=== PATIENT | female | born 1935 | race Caucasian/White ===

== ENCOUNTER 2017-03-23 16:16 | Inpatient (IN) | payer MEDICARE ==
[~2017-03-23] VITALS: Ht 162.6 cm; Wt 70.8 kg
[~2017-03-23 16:16] MED LIST: AZOP1SUS RIGHT EYE; LEVO100T5 PO
[2017-03-23 16:36] VITALS: BP 164/67; PULSE 52; RESP 18; TEMP 97.7; O2SAT 98
--- NOTE | 2017-03-23 16:43 | PD ---
HPI Chief Complaint: knee injury Time Seen by Provider: 16:37 Travel History International Travel<30 days: No Contact w/Intl Traveler<30days: No Traveled to known affect area: No History of Present Illness HPI 81-year-old female came to the emergency room brought by EMS after slipping and falling and injuring her left knee. Patient says she was on the floor for 45 minutes before EMS showed up. She is in excruciating pain in spite of getting 10 mg of IV morphine en route. She says she's been unable to move her left leg and the pain is from her mid thigh going all the way down. The knee looks quite swollen. No history of head injury. Her hip and her right leg is within normal limits. [facility] Past Medical History Narrative Medical List of her past medical, surgical, social and family history was reviewed from the nursing note. Social History Tobacco Use: No Allergies-Medications (Allergen,Severity, Reaction): Coded Allergies: No Known Allergies (Unverified , 03/23/17) Comments No known drug allergies. Reported Meds & Prescriptions Reported Meds & Active Scripts Active Levothyroxine (Levothyroxine Sodium) 100 Mcg Tab 100 Mcg PO DAILY Reported Azopt Opth Drops (Brinzolamide) 1% Susp 1 Drop RIGHT EYE BID Narrative Medication List of her home medications reviewed from the nursing note. Review of Systems Except as stated in HPI: all other systems reviewed are Neg Physical Exam Narrative GENERAL: Awake, alert, anxious, moderate distress significant distress SKIN: Focused skin assessment warm/dry. HEAD: Atraumatic. Normocephalic. EYES: Pupils equal and round. No scleral icterus. No injection or drainage. ENT: No nasal bleeding or discharge. Mucous membranes pink and moist. NECK: Trachea midline. No JVD. CARDIOVASCULAR: Regular rate and rhythm. No murmur appreciated. RESPIRATORY: No accessory muscle use. Clear to auscultation. Breath sounds equal bilaterally. GASTROINTESTINAL: Abdomen soft, non-tender, nondistended. Hepatic and splenic margins not palpable. MUSCULOSKELETAL: Left knee swollen and tender. Significantly diminished range of motion at the left knee joint due to the pain No clubbing. No cyanosis. No edema. Distal neurovascular are intact NEUROLOGICAL: Awake and alert. No obvious cranial nerve deficits. Motor grossly within normal limits. Normal speech. PSYCHIATRIC: Appropriate mood and affect; insight and judgment normal. Data Data Last Documented VS Vital Signs Date Time Temp Pulse Resp B/P Pulse Ox O2 Delivery O2 Flow Rate FiO2 03/23/17 18:01 71 20 148/68 98 Room Air 03/23/17 16:36 97.7 Orders Electrocardiogram (03/23/17 16:37) Basic Metabolic Panel (Bmp) (03/23/17 16:37) Complete Blood Count With Diff (03/23/17 16:37) Prothrombin Time / Inr (Pt) (03/23/17 16:37) Chest, Single Ap (03/23/17 16:37) Ecg Monitoring (03/23/17 16:37) Bilateral Bp Monitoring (03/23/17 16:37) Iv Access Insert/Monitor (03/23/17 16:37) Oximetry (03/23/17 16:37) Oxygen Administration (03/23/17 16:37) Sodium Chloride 0.9% Flush (Ns Flush) (03/23/17 16:45) Hydromorphone Pf Inj (Dilaudid Pf Inj) (03/23/17 16:45) Femur (Ap & Lat/2vws) (03/23/17 ) Tibia/Fibula (Ap/Lat) (03/23/17 ) Knee, Ltd (1 Or 2vws) (03/23/17 ) Hydromorphone Pf Inj (Dilaudid Pf Inj) (03/23/17 18:00) Admit Order (Ed Use Only) (03/23/17 18:26) Labs Laboratory Tests Test 03/23/17 16:53 White Blood Count 4.8 TH/MM3 Red Blood Count 4.06 MIL/MM3 Hemoglobin 12.0 GM/DL Hematocrit 36.4 % Mean Corpuscular Volume 89.7 FL Mean Corpuscular Hemoglobin 29.5 PG Mean Corpuscular Hemoglobin 32.9 % Concent Red Cell Distribution Width 13.8 % Platelet Count 155 TH/MM3 Mean Platelet Volume 7.5 FL Neutrophils (%) (Auto) 66.6 % Lymphocytes (%) (Auto) 21.9 % Monocytes (%) (Auto) 7.7 % Eosinophils (%) (Auto) 2.9 % Basophils (%) (Auto) 0.9 % Neutrophils # (Auto) 3.2 TH/MM3 Lymphocytes # (Auto) 1.1 TH/MM3 Monocytes # (Auto) 0.4 TH/MM3 Eosinophils # (Auto) 0.1 TH/MM3 Basophils # (Auto) 0.0 TH/MM3 CBC Comment DIFF FINAL Differential Comment Prothrombin Time 10.4 SEC Prothromb Time International 0.9 RATIO Ratio Sodium Level 141 MEQ/L Potassium Level 3.6 MEQ/L Chloride Level 107 MEQ/L Carbon Dioxide Level 29.5 MEQ/L Anion Gap 5 MEQ/L Blood Urea Nitrogen 22 MG/DL Creatinine 0.62 MG/DL Estimat Glomerular Filtration 93 ML/MIN Rate Random Glucose 102 MG/DL Calcium Level 8.6 MG/DL [facility] Medical Decision Making Medical Screen Exam Complete: Yes Emergency Medical Condition: Yes Medical Record Reviewed: Yes Differential Diagnosis Femur fracture, knee fracture, tib-fib fracture Narrative Course 4:45 PM patient was given pain medication and x-rays are ordered. Based on my clinical exam my suspicion is high for distal femur fracture. Awaiting for the x-ray to be done and resulted. Preop labs have been ordered in anticipation. Case will be signed over to the oncoming ER physician. Procedures EKG Prior to Arrival: No Scripts Ergocalciferol 50,000 Unit Cap50,000 Units PO Q7D #56 CAP Prov:Mickey Castano Jr. 03/24/17 Rivaroxaban (Xarelto)10 Mg Tab10 Mg PO DAILY #21 TAB Ref 0 Prov:Mickey Castano Jr. 03/24/17 Hydrocodone-Acetaminophen 7.5-325 mg Tab1 Tab PO Q4H PRN (PAIN) #60 TAB Ref 0 Prov:Mickey Castano Jr. 03/24/17 Walker with Front Wheels 1 Mis Mis #1 EA .ROUTE DIRECTED Ref 0 Prov:Mickey Castano Jr. 03/24/17 Vicente Montejo MD Mar 23, 2017 16:43
[2017-03-23] MEDS ORDERED: HYDROmorphone HCL PF 1 MG/ML VIAL IV PUSH ONE ×3 (16:45→19:15)
[2017-03-23] MEDS ORDERED: SODIUM CHLORIDE 0.9% FLUSH 10 ML FLUSH IVF PRN (16:45)
[2017-03-23 17:06] LABS: AUTOMATED NEUTROPHIL # 3.2 TH/MM3 (1.8-7.7); BASOPHIL % 0.9 % (0.0-2.0); EOSINOPHIL # 0.1 TH/MM3 (0-0.4); EOSINOPHIL % 2.9 % (0.0-4.0); HEMATOCRIT 36.4 % (35.0-46.0); HEMO FLAGS DIFF FINAL; LYMPH % 21.9 % (9.0-44.0); LYMPHOCYTE # 1.1 TH/MM3 (1.0-4.8); MEAN CELL VOLUME 89.7 FL (80.0-100.0); MEAN CORPUSCULAR HEMOGLOBIN 29.5 PG (27.0-34.0); MEAN CORPUSCULAR HGB CONC 32.9 % (32.0-36.0); MONO % 7.7 % (0.0-8.0); NEUT % 66.6 % (16.0-70.0); PLATELET COUNT 155 TH/MM3 (150-450); RED BLOOD COUNT 4.06 MIL/MM3 (4.00-5.30); RED CELL DISTRIBUTION WIDTH 13.8 % (11.6-17.2); WHITE BLOOD COUNT 4.8 TH/MM3 (4.0-11.0)
[2017-03-23 17:15] LABS: INTERNATIONAL NORMALIZED RATIO 0.9 RATIO; PROTHROMBIN TIME - PATIENT 10.4 SEC (9.8-11.6)
[2017-03-23 17:27] LABS: BICARBONATE 29.5 MEQ/L (21.0-32.0); POTASSIUM 3.6 MEQ/L (3.5-5.1)
--- NOTE | 2017-03-23 17:59 | RADRPT ---
EXAM DATE/TIME: 03/23/2017 17:19 [facility] COMPARISON: No previous studies available for comparison. INDICATIONS : Fall. Knee pain. MEDICAL HISTORY : None. SURGICAL HISTORY : Total knee replacement, left. ENCOUNTER: Initial ACUITY: 1 day PAIN SCORE: 10/10 LOCATION: Left distal femur FINDINGS: An acute comminuted displaced fracture involving the left distal femur is noted proximal to the knee prosthesis. CONCLUSION: Acute comminuted displaced fracture involving the left distal femur proximal to the knee prosthesis. Ronald Dominguez MD on March 23, 2017 at 17:55 Board Certified Radiologist. This report was verified electronically.
[2017-03-23 18:01] VITALS: BP 148/68; PULSE 71; RESP 20; O2SAT 98
--- NOTE | 2017-03-23 18:09 | RADRPT ---
EXAM DATE/TIME: 03/23/2017 17:36 [facility] COMPARISON: No previous studies available for comparison. INDICATIONS : Fall, chest pain. MEDICAL HISTORY : None. SURGICAL HISTORY : None. ENCOUNTER: Initial ACUITY: 1 day PAIN SCORE: 0/10 LOCATION: Bilateral chest FINDINGS: A single view of the chest demonstrates the lungs to be symmetrically aerated without evidence of mas s, infiltrate or effusion. The cardiomediastinal contours are unremarkable. Osseous structures are grossly intact. CONCLUSION: No evidence of acute cardiopulmonary disease. Josiah Guzman MD on March 23, 2017 at 18:07 Board Certified Radiologist. This report was verified electronically.
--- NOTE | 2017-03-23 18:09 | RADRPT ---
EXAM DATE/TIME: 03/23/2017 17:23 [facility] COMPARISON: No previous studies available for comparison. INDICATIONS : Fall. MEDICAL HISTORY : None. SURGICAL HISTORY : None. ENCOUNTER: Initial ACUITY: 1 day PAIN SCORE: 0/10 LOCATION: Left tibia and fibula FINDINGS: A left knee replacement is noted with prosthesis in good position. There is no acute fracture or disl ocation of the tibia or fibula. CONCLUSION: No acute fracture or dislocation. Ronald Dominguez MD on March 23, 2017 at 17:58 Board Certified Radiologist. This report was verified electronically.
--- NOTE | 2017-03-23 18:53 | PD ---
Data Data Last Documented VS Vital Signs Date Time Temp Pulse Resp B/P Pulse Ox O2 Delivery O2 Flow Rate FiO2 03/23/17 18:01 71 20 148/68 98 Room Air 03/23/17 16:36 97.7 Orders Electrocardiogram (03/23/17 16:37) Basic Metabolic Panel (Bmp) (03/23/17 16:37) Complete Blood Count With Diff (03/23/17 16:37) Prothrombin Time / Inr (Pt) (03/23/17 16:37) Chest, Single Ap (03/23/17 16:37) Ecg Monitoring (03/23/17 16:37) Bilateral Bp Monitoring (03/23/17 16:37) Iv Access Insert/Monitor (03/23/17 16:37) Oximetry (03/23/17 16:37) Oxygen Administration (03/23/17 16:37) Sodium Chloride 0.9% Flush (Ns Flush) (03/23/17 16:45) Hydromorphone Pf Inj (Dilaudid Pf Inj) (03/23/17 16:45) Femur (Ap & Lat/2vws) (03/23/17 ) Tibia/Fibula (Ap/Lat) (03/23/17 ) Knee, Ltd (1 Or 2vws) (03/23/17 ) Hydromorphone Pf Inj (Dilaudid Pf Inj) (03/23/17 18:00) Admit Order (Ed Use Only) (03/23/17 18:26) Labs Laboratory Tests Test 03/23/17 16:53 White Blood Count 4.8 TH/MM3 Red Blood Count 4.06 MIL/MM3 Hemoglobin 12.0 GM/DL Hematocrit 36.4 % Mean Corpuscular Volume 89.7 FL Mean Corpuscular Hemoglobin 29.5 PG Mean Corpuscular Hemoglobin 32.9 % Concent Red Cell Distribution Width 13.8 % Platelet Count 155 TH/MM3 Mean Platelet Volume 7.5 FL Neutrophils (%) (Auto) 66.6 % Lymphocytes (%) (Auto) 21.9 % Monocytes (%) (Auto) 7.7 % Eosinophils (%) (Auto) 2.9 % Basophils (%) (Auto) 0.9 % Neutrophils # (Auto) 3.2 TH/MM3 Lymphocytes # (Auto) 1.1 TH/MM3 Monocytes # (Auto) 0.4 TH/MM3 Eosinophils # (Auto) 0.1 TH/MM3 Basophils # (Auto) 0.0 TH/MM3 CBC Comment DIFF FINAL Differential Comment Prothrombin Time 10.4 SEC Prothromb Time International 0.9 RATIO Ratio Sodium Level 141 MEQ/L Potassium Level 3.6 MEQ/L Chloride Level 107 MEQ/L Carbon Dioxide Level 29.5 MEQ/L Anion Gap 5 MEQ/L Blood Urea Nitrogen 22 MG/DL Creatinine 0.62 MG/DL Estimat Glomerular Filtration 93 ML/MIN Rate Random Glucose 102 MG/DL Calcium Level 8.6 MG/DL MDM Supervised Visit with RAFA: No Narrative Course I took over care for this patient from Dr. Montejo. Patient had a mechanical fall and has evidence of a distal femur fracture. She will be admitted to orthopedics. I called Dr. Bowen who she identifies as her orthopedist. He would prefer Dr. Dunbar consult on the patient as he expects this to be a complex surgery. I placed the orthopedic consultation in the chart. Patient will be kept NPO after midnight Diagnosis Primary Impression: Fracture, femur, distal Qualified Code: S72.492A - Other closed fracture of distal end of left femur, initial encounter Admitting Information Admitting Physician Requests: Admit Arin Maldonado MD Mar 23, 2017 18:53
--- NOTE | 2017-03-23 19:08 | RADRPT ---
EXAM DATE/TIME: 03/23/2017 17:23 [facility] COMPARISON: No previous studies available for comparison. INDICATIONS : Left knee pain after fall. MEDICAL HISTORY : None SURGICAL HISTORY : Left total knee replacement ENCOUNTER: Initial ACUITY: 1 day PAIN SCORE: 10/10 LOCATION: Left knee. FINDINGS: There is an acute comminuted displaced fracture of the left distal femur proximal to the femoral pros thesis. The patient is status post left total knee replacement with additional screw noted traversin g the proximal fibula and a portion of the proximal tibia. CONCLUSION: Acute comminuted displaced fracture involving the left distal femur proximal to the femoral prosthesi s. Ronald Dominguez MD on March 23, 2017 at 17:57 Board Certified Radiologist. This report was verified electronically.
[2017-03-23] MEDS ORDERED: SODIUM CHLOR 0.9% 1000 ML INJ 1,000 ML IV SCH (19:11)
[2017-03-23] MEDS ORDERED: ONDANSETRON HCL 4 MG/2 ML VIAL IVP PRN (19:15)
[2017-03-23] MEDS ORDERED: NALOXONE HCL 0.4 MG/ML AMP IV PRN (19:15)
[2017-03-23] MEDS ORDERED: ACETAMINOPHEN 325 MG TAB PO PRN ×2 (19:15)
[2017-03-23] MEDS ORDERED: SODIUM CHLORIDE 0.9% FLUSH 10 ML FLUSH IV FLUSH PRN (19:15)
--- NOTE | 2017-03-23 19:26 | HHI.HP ---
[facility] Service [facility] Primary Care Physician Sean Leija III, MD Admission Diagnosis distal femur fracture Diagnoses: Chief Complaint: Leg pain Travel History International Travel<30 Days: No Contact w/Intl Traveler <30 Da: No Traveled to Known Affected Are: No History of Present Illness The patient is a 81-year-old female with past medical history of osteoarthritis who is presenting to the hospital following a mechanical fall. She said she was doing laundry and slipped on wet tile and fell down on the left side of her body. She believes she had the left lower buttocks area the hardest. She had extreme pain upon hitting the ground and was unable to stand up. Her partner found her and called the patient's orthopedic doctor's office who recommended they call for an ambulance. An ambulance soon arrived and transported the patient to the hospital. The patient says her pain did not much improve with the Dilaudid. As her pain as a 10 out of 10 with any movement. She says her pain is a 0 if she does not move at all. She says that she has also arthritis in her right knee and will eventually need surgery for that. She also complains of lower back pain with shooting pains on the right side. Review of Systems Except as stated in HPI: all other systems reviewed are Neg Past Family Social History Past Medical History Osteoarthritis Hypothyroid Bronchiectasis Past Surgical History Tonsillectomy 1943 Appendectomy 1950 Cholecystectomy 1987 Cataract 2013 Bladder repair/hysterectomy 2013 Left knee replacement 2009 Allergies: Coded Allergies: No Known Allergies (Unverified , 03/23/17) Active Ordered Medications Current Medications Medications (Trade) Dose Ordered Sig/Chilo Route Start Time Stop Time Status Last Admin (NS Flush) 2 ml UNSCH PRN IVF 03/23/17 16:45 (Synthroid) 100 mcg DAILY@06 PO 03/24/17 06:00 Patient Own Medication PT OWN MED: Brinzolamide Optrupa Chaparro. BID RIGHT EYE 03/23/17 21:00 Future Hold (Dilaudid Pf Inj) 0.5 mg ONCE ONCE IV PUSH 03/23/17 19:15 03/23/17 19:16 Family History The patient denies pertinent family history Social History The patient quit smoking and drinking a while ago. Physical Exam Vital Signs Vital Signs Date Time Temp Pulse Resp B/P Pulse Ox O2 Delivery O2 Flow Rate FiO2 03/23/17 18:01 71 20 148/68 98 Room Air 03/23/17 17:51 22 98 03/23/17 16:46 97 Room Air 03/23/17 16:36 97.7 52 18 164/67 98 Physical Exam GENERAL: This is a well-nourished, well-developed patient, in no apparent distress. SKIN: No rashes, ecchymoses or lesions. Cool and dry. HEAD: Atraumatic. Normocephalic. No temporal or scalp tenderness. EYES: Pupils equal round and reactive. Extraocular motions intact. No scleral icterus. No injection or drainage. ENT: Nose without bleeding, purulent drainage or septal hematoma. Throat without erythema, tonsillar hypertrophy or exudate. Uvula midline. Airway patent. NECK: Trachea midline. No JVD or lymphadenopathy. Supple, nontender, no meningeal signs. CARDIOVASCULAR: Regular rate and rhythm without murmurs, gallops, or rubs. RESPIRATORY: Clear to auscultation. Breath sounds equal bilaterally. No wheezes , rales, or rhonchi. GASTROINTESTINAL: Abdomen soft, non-tender, nondistended. No hepato-splenomegaly , or palpable masses. No guarding. MUSCULOSKELETAL: Left knee is swollen. It is tender to palpation. The patient has decreased range of motion of the left lower extremity. NEUROLOGICAL: Awake and alert. Cranial nerves II through XII intact. Motor and sensory grossly within normal limits. Normal speech. PSYCH: Mood and affect appropriate. Laboratory Laboratory Tests Test 03/23/17 16:53 White Blood Count 4.8 Red Blood Count 4.06 Hemoglobin 12.0 Hematocrit 36.4 Mean Corpuscular Volume 89.7 Mean Corpuscular Hemoglobin 29.5 Mean Corpuscular Hemoglobin 32.9 Concent Red Cell Distribution Width 13.8 Platelet Count 155 Mean Platelet Volume 7.5 Neutrophils (%) (Auto) 66.6 Lymphocytes (%) (Auto) 21.9 Monocytes (%) (Auto) 7.7 Eosinophils (%) (Auto) 2.9 Basophils (%) (Auto) 0.9 Neutrophils # (Auto) 3.2 Lymphocytes # (Auto) 1.1 Monocytes # (Auto) 0.4 Eosinophils # (Auto) 0.1 Basophils # (Auto) 0.0 CBC Comment DIFF FINAL Differential Comment Prothrombin Time 10.4 Prothromb Time International 0.9 Ratio Sodium Level 141 Potassium Level 3.6 Chloride Level 107 Carbon Dioxide Level 29.5 Anion Gap 5 Blood Urea Nitrogen 22 Creatinine 0.62 Estimat Glomerular Filtration 93 Rate Random Glucose 102 Calcium Level 8.6 Result Diagram: 03/23/17 1653 03/23/17 1653 Imaging Last Impressions Chest X-Ray 03/23/17 1637 Signed Impressions: Service Date/Time: Thursday, March 23, 2017 17:36 - CONCLUSION: No evidence of acute cardiopulmonary disease. Josiah Guzman MD Tibia/Fibula X-Ray 03/23/17 0000 Signed Impressions: Service Date/Time: Thursday, March 23, 2017 17:23 - CONCLUSION: No acute fracture or dislocation. Ronald Dominguez MD Assessment and Plan Assessment and Plan Acute left distal femur fracture Following a mechanical fall. Noted on x ray. Orthopedic surgery was consulted and will see the patient in the morning. - Pain control with IV Dilaudid and PO oxycodone, with a bowel regimen. - Further management per orthopedic surgery. - Incentive spirometry. - She will need physical therapy. - IV fluids. Hypertension Secondary to pain. - Pain control. - IV Vasotec as needed. Bronchiectasis Secondary to many years of smoking. She has quit smoking. Chest x-ray with no acute disease. - Oxygen and nebs as needed. - Incentive spirometry. PPx: Per orthopedic surgery. Code Status Full Discussed Condition With Pt, pt's partner, Dr. Maldonado Physician Certification 2 Midnight Certification Type: Admission for Inpatient Services Order for Inpatient Services The services are ordered in accordance with Medicare regulations or non- Medicare payer requirements, as applicable. In the case of services not specified as inpatient-only, they are appropriately provided as inpatient services in accordance with the 2-midnight benchmark. Estimated LOS (days): 2 days is the estimated time the patient will need to remain in the hospital, assuming treatment plan goals are met and no additional complications. Post-Hospital Plan: Not yet determined Mickey Torres DO Mar 23, 2017 19:26
[2017-03-23] MEDS ORDERED: POTASSIUM CHLORIDE 20 MEQ CONTROLLED RELEASE TAB PO ONE (19:30)
[2017-03-23] MEDS ORDERED: ENALAPRILAT 1.25 MG/ML VIAL IV PUSH PRN (19:30)
[2017-03-23 20:56] VITALS: BP 147/74; PULSE 80; RESP 17; TEMP 96.7; O2SAT 99
[2017-03-23] MEDS ORDERED: SODIUM CHLORIDE 0.9% FLUSH 10 ML FLUSH IV FLUSH SCH (21:00)
[2017-03-23] MEDS ORDERED: BRINZOLAMIDE OPTH RIGHT EYE SCH (21:00)
[2017-03-23] MEDS: DOCUSATE SODIUM 50 MG/SENNA 8.6 MG TAB PO SCH (23:19)
[2017-03-23] MEDS: HYDROmorphone HCL PF 1 MG/ML VIAL IV PRN (23:21)
[2017-03-24 00:40] VITALS: BP 120/65; PULSE 66; RESP 16; TEMP 96; O2SAT 97
[2017-03-24] MEDS ORDERED: SODIUM CHLORID 0.9% 500 ML IV PRN (01:15)
[2017-03-24] MEDS ORDERED: POVIDONE IODINE 5% (ANTISEPSIS KIT) 4 APPLICATIONS EACH NARE PRN (01:15)
[2017-03-24] MEDS ORDERED: INSULIN HUMAN REGULAR 1,000 UNITS/10 ML VIAL SQ PRN (01:15)
[2017-03-24] MEDS ORDERED: METOPROLOL TARTRATE 25 MG TAB PO PRN (01:15)
[2017-03-24] MEDS ORDERED: CHLORHEXIDINE GLUCONATE 2 % 1 PACK (2 CLOTHS) TOPICAL PRN (01:15)
[2017-03-24] MEDS ORDERED: LACTATED RINGER'S 1000 ML IV PRN (01:15)
[2017-03-24 04:45] VITALS: BP 116/63; PULSE 73; RESP 16; TEMP 96.5; O2SAT 97
[2017-03-24] MEDS: LEVOTHYROXINE SODIUM 100 MCG TAB PO SCH (06:12)
[2017-03-24] MEDS: HYDROmorphone HCL PF 1 MG/ML VIAL IV PRN (06:17)
--- NOTE | 2017-03-24 06:53 | PD.ORT.PN ---
Subjective Subjective Remarks Mechanical fall at home when doing laundry, slipped on tile. Left knee pain. No other complaints Objective Vitals Vital Signs Date Time Temp Pulse Resp B/P Pulse Ox O2 Delivery O2 Flow Rate FiO2 03/24/17 00:40 96.0 66 16 120/65 97 03/23/17 23:51 18 03/23/17 20:56 96.7 80 17 147/74 99 03/23/17 18:01 71 20 148/68 98 Room Air 03/23/17 17:51 22 98 03/23/17 16:46 97 Room Air 03/23/17 16:36 97.7 52 18 164/67 98 I/O 03/23/17 03/23/17 03/23/17 03/24/17 03/24/17 03/24/17 07:00 15:00 23:00 07:00 15:00 23:00 Intake Total 240 ml 0 ml Output Total 200 ml 500 ml Balance 40 ml -500 ml Intake Oral 240 ml 0 ml Output Urine Total 200 ml 500 ml # Bowel Movements 0 0 Result Diagram: 03/23/17 1653 03/23/17 1653 Other Results Laboratory Tests Test 03/23/17 16:53 Prothrombin Time 10.4 SEC (9.8-11.6) Prothromb Time International 0.9 RATIO Ratio Imaging Last 24 hours Impressions Chest X-Ray 03/23/17 1637 Signed Impressions: Service Date/Time: Thursday, March 23, 2017 17:36 - CONCLUSION: No evidence of acute cardiopulmonary disease. Josiah Guzman MD Objective Remarks Bilateral upper extremities: Full range of motion and neurovascularly intact right lower extremity: Full range of motion and neurovascularly intact. Osteoarthritis of knee Left lower extremity: Knee immobilizer in place. Distally intact sensation good capillary refills. Pain with any movement of knee. No pain to palpation of hip or ankle. Strong dorsal flexion plantar flexion of foot Assessment & Plan Assessment and Plan Left periprosthetic distal femur fracture Knee immobilizer and bed rest Nothing by mouth Surgery this morning for open reduction internal fixation Sign consents for surgery with Dr. Gio Castano,Mickey CHAPPELL Mar 24, 2017 06:53
[2017-03-24] MEDS ORDERED: GENTAMICIN SULFATE 80 MG/2 ML VIAL ONE (07:02)
[2017-03-24] MEDS ORDERED: VANCOMYCIN HCL 1000 MG VIAL ONE (07:15)
[2017-03-24] MEDS ORDERED: ceFAZolin 2 GM PREMIX 50 ML ONE (07:15)
--- NOTE | 2017-03-24 07:15 | EKG ---
Date Performed: 03/23/2017 Time Performed: 17:03:53 PTAGE: 81 years EKG: Sinus rhythm LOW QRS VOLTAGE IN PRECORDIAL LEADS BORDERLINE ECG NO PREVIOUS TRACING DOCTOR: Yefri Machado Interpretating Date/Time 03/24/2017 07:14:16
[2017-03-24 07:21] LABS: AUTOMATED NEUTROPHIL # 4.1 TH/MM3 (1.8-7.7); BASOPHIL % 0.3 % (0.0-2.0); EOSINOPHIL # 0.1 TH/MM3 (0-0.4); EOSINOPHIL % 1.6 % (0.0-4.0); HEMATOCRIT 31.7 % (35.0-46.0); HEMO FLAGS DIFF FINAL; LYMPH % 24.5 % (9.0-44.0); LYMPHOCYTE # 1.6 TH/MM3 (1.0-4.8); MEAN CELL VOLUME 89.2 FL (80.0-100.0); MEAN CORPUSCULAR HEMOGLOBIN 29.8 PG (27.0-34.0); MEAN CORPUSCULAR HGB CONC 33.4 % (32.0-36.0); MONO % 9.4 % (0.0-8.0); NEUT % 64.2 % (16.0-70.0); PLATELET COUNT 158 TH/MM3 (150-450); RED BLOOD COUNT 3.56 MIL/MM3 (4.00-5.30); RED CELL DISTRIBUTION WIDTH 13.8 % (11.6-17.2); WHITE BLOOD COUNT 6.3 TH/MM3 (4.0-11.0)
[2017-03-24 07:45] LABS: ANION GAP 8 MEQ/L (5-15); AST (GOT) 14 U/L (15-37); BICARBONATE 23.6 MEQ/L (21.0-32.0); BLOOD UREA NITROGEN 16 MG/DL (7-18); CHLORIDE 104 MEQ/L (98-107); GLOMERULAR FILTRATION RATE 142 ML/MIN (>89); POTASSIUM 3.8 MEQ/L (3.5-5.1); SODIUM (NA) 136 MEQ/L (136-145)
[2017-03-24 07:46] LABS: ALT (GPT) 17 U/L (10-53)
[2017-03-24] MEDS ORDERED: ACETAMINOPHEN 1000 MG/100 ML VIAL IV ONE (07:46)
[2017-03-24] MEDS ORDERED: MIDAZOLAM HCL 2 MG/2 ML VIAL ONE (07:46)
[2017-03-24 07:48] LABS: ALKALINE PHOSPHATASE 61 U/L (45-117); TOTAL BILIRUBIN ADULT 0.4 MG/DL (0.2-1.0)
[2017-03-24] MEDS ORDERED: VANCOMYCIN HCL 1000 MG VIAL OTHER ONE (08:35)
[2017-03-24] MEDS ORDERED: ceFAZolin INJ 1,000 MG VIAL IV ONE (08:40)
[2017-03-24] MEDS ORDERED: GENTAMICIN SULFATE 80 MG/2 ML VIAL IRRIGATION ONE (08:49)
[2017-03-24] MEDS: DOCUSATE SODIUM 50 MG/SENNA 8.6 MG TAB PO SCH ×2 (09:00→21:21)
[2017-03-24] MEDS ORDERED: MISCELLANEOUS NURSING INFORMATION XX PRN (09:45)
[2017-03-24] MEDS ORDERED: MORPHINE SULFATE 4 MG/ML INJ IV PUSH PRN (09:45)
[2017-03-24] MEDS ORDERED: SODIUM CHLORIDE 0.9% FLUSH 5 ML FLUSH IVF PRN (09:45)
[2017-03-24] MEDS ORDERED: Post-op Orders (for Pharmacy) MISC XX ONE (09:45)
[2017-03-24] MEDS ORDERED: diphenhydrAMINE HCL 25 MG CAP PO PRN (09:45)
--- NOTE | 2017-03-24 09:56 | PD.OP ---
cc: Mychal Dunbar MD Operative Report Date of Surgery: Mar 24, 2017 Preoperative Diagnosis: Displaced left distal femur supracondylar periprosthetic fracture Postoperative Diagnosis: Same Procedure: Open reduction internal fixation left distal femur Anesthesia: Gen. Surgeon: Mychal Dunbar Direct Mail Marketer(s): Adrien Castano PA-C The surgical procedure was assisted by my physician care team assistant. My P.A. presence was necessary throughout this case for the manipulation and positioning of the surgical extremity. My P.A. was assisting me throughout the duration of this procedure. The skill set of a physician care team assistant was medically necessary to complete this procedure. During the surgical case the ophthalmic surgical assistant was working at the back table and the physician care team assistant was directly assisting me. Operation and Findings: Patient was seen and examined preoperatively. She is found to have a displaced left distal femur periprosthetic fracture. Informed consent was obtained after detailed discussion of risk and benefits of procedure. operative site was marked. Patient was brought to the OR, placed on OR table, and given IV sedation with GETA. IV antibiotics were administered and timeout procedure was performed. The operative leg was prepped with alcohol, followed with Hibiclens, draped in usual sterile fashion. A timeout procedure was performed. Clean air was utilized for this case. The procedure began with a 4-inch incision over the lateral aspect of the distal femur. Subcutaneous tissue was dissected with Bovie. Iliotibial band was split in line with fibers. At this point the fracture was visualized. Traction was applied. Fracture was manipulated. The fracture reduced into excellent alignment. Steinmann pins were used to hold provisional fixation. At this point attention was turned to plate placement. An ITS lateral condylar plate was selected and attached to the insertion handle jig. The plate was placed underneath the vastus lateralis. Steinmann pins were used to hold the plate to bone. Multiplanar fluoroscopy confirmed appropriate placement of plate. Multiple 4.5 cortical screws were now placed in percutaneous fashion through the plate. The plate was compressed to bone with a periarticular clamp. Multiple locking screws were now placed in the distal segment of the distal femur. Additional locking screws were placed into the femoral shaft. All screws were predrilled and premeasured for appropriate length. Final fluoroscopy revealed excellent alignment of fracture with well-placed hardware. Wound was thoroughly irrigated. Fascia was closed with #1 Vicryl. Subcutaneous tissue was closed with 3-0 Vicryl. Skin was closed with yajaira. Sterile dressings were applied. The patient was placed into a knee immobilizer and transferred to recovery in stable condition. Needle and sponge counts were correct. Mychal Dunbar MD Mar 24, 2017 09:56
[2017-03-24] MEDS ORDERED: DO NOT ADM ANY ANTICOAGULANT DRUGS PRN (10:08)
[2017-03-24] MEDS ORDERED: HYDR-3580 PO (10:11)
[2017-03-24] MEDS ORDERED: WALKER WHEELS/F1 MIS (10:11)
[2017-03-24] MEDS ORDERED: CALCTAB19 PO (10:11)
[2017-03-24] MEDS ORDERED: XARE10TA PO (10:11)
[2017-03-24] MEDS ORDERED: ERGO1CAP30 PO (10:11)
[2017-03-24] MEDS ORDERED: fentaNYL CITRATE 250 MCG/5 ML AMP ONE (10:24)
--- NOTE | 2017-03-24 10:36 | MB ---
cc: SUMANTH KINGSTON MICHAEL DATE OF CONSULTATION: 03/24/2017 REASON FOR CONSULTATION Left distal femur periprosthetic fracture. CONSULTING PHYSICIAN Dr. Torres HISTORY OF PRESENT ILLNESS Mrs. Godoy is a pleasant 81-year-old female who has a history of osteoarthritis. She recently moved to [place]. She states that her condo has tile that is relatively slippery. She was caring laundry when she lost her balance and fell. She landed on her left side. She had immediate left leg pain. She has a history of left total hip arthroplasty that was performed in [place] several years ago. She was unable to stand or ambulate. She presented to the emergency room where x-rays revealed a left distal femur periprosthetic fracture. She is currently awake and alert on the orthopedic floor. Her only complaint is her left leg. Pain is worse with movement and is improved with rest. She denies any dizziness, syncope or loss of consciousness. PAST MEDICAL HISTORY ILLNESSES 1. Hypothyroidism. 2. Bronchiectasis. 3. Osteoarthritis. SURGERIES 1. Tonsillectomy. 2. Appendectomy. 3. Cholecystectomy. 4. Hysterectomy. 5. Left knee replacement in 2009. ALLERGIES No known drug allergies. MEDICATIONS Please see the EMR for complete list of inpatient medications. This was reviewed. FAMILY HISTORY Noncontributory. She denies any familial medical problems. SOCIAL HISTORY The patient does not smoke or drink. She denies drug use. REVIEW OF SYSTEMS The patient denies headache, visual changes, neck pain, chest pain, shortness of breath, abdominal pain, nausea, vomiting or recent weight loss. She complains of left knee and leg pain. PHYSICAL EXAMINATION GENERAL: The patient is a pleasant 81-year-old female who is awake and alert. She is alert and oriented x3. She appears well-developed, well-nourished. VITAL SIGNS: Temperature 96.5, pulse 73, respirations 16, blood pressure 116/63. O2 sat is 97% on room air. HEAD: The patient is normocephalic. Pupils are equal. NECK: Soft, nontender. Trachea is midline. ABDOMEN: Soft, nontender, nondistended. EXTREMITIES: Examination of bilateral upper extremities reveals no pain with shoulder, elbow or wrist motion. She has intact sensation in all fingers. Radial pulses are palpable. Stenographer Secretary strength is +5. Skin is intact to both hands. Examination of right leg reveals no pain with hip, knee or ankle motion. Skin is intact. Dorsalis pedis pulse is palpable. Examination of left leg reveals no tenderness around her hip, ankle or foot. She has intact sensation in the left foot. Dorsalis pedis pulse is palpable. Examination of left knee reveals a well-healed surgical incision. She has pain with any knee motion. She has mild swelling throughout the knee. Calf and thigh compartments are soft. X-RAYS X-rays of left femur were reviewed. X-rays reveal a displaced left distal femur periprosthetic fracture. IMPRESSION Displaced left distal femur periprosthetic fracture. PLAN The treatment options were discussed with the patient. At this point I would recommend open reduction, internal fixation of left distal femur. The risks of surgery include bleeding, infection, injuries to arteries, nerves and blood vessels, nonunion, malunion, painful hardware, as well as medical complications including blood clot, stroke, heart attack and . All questions were answered. I will plan on surgery today. A mid-level provider in my office, nurse practitioner or PA, may see this patient on a follow-up basis and continue to implement the objective of this plan including: Starting or adjusting medications, injections of muscle, tendon, bursa or joints, cast application, orthotic or brace application, physical therapy, further radiographic studies including x-ray, MRI, CT, ultrasounds or bone scan, vascular studies, neurologic studies, or other specialist consultations, and proceeding with surgical management as appropriate. MD ELIZABETH Maldonado/PATRICK /10:03 AM /10:25 AM
[2017-03-24] MEDS ORDERED: *morphine SULFATE 8 MG/ML PERIprocedure ONLY ONE ×3 (10:45→11:32)
[2017-03-24] MEDS: LACTATED RINGER'S 1000 ML INJ 1,000 ML IV SCH ×2 (10:50→21:24)
[2017-03-24] MEDS ORDERED: ERGOCALCIFEROL (VIT D2) 50,000 UNIT CAP PO SCH (11:00)
[2017-03-24] MEDS ORDERED: NEOSTIGMINE 3 MG/3 ML SYR IV ONE ×2 (12:00)
[2017-03-24] MEDS ORDERED: PROPOFOL 200 MG/20 ML AMP IV ONE (12:00)
[2017-03-24] MEDS ORDERED: ePHEDrine/NS 25 MG/5 ML SYR IV ONE (12:00)
[2017-03-24] MEDS ORDERED: ONDANSETRON HCL 4 MG/2 ML VIAL IV PUSH ONE (12:01)
[2017-03-24] MEDS ORDERED: PHENYLEPH/NS 1000 MCG/10 ML SYR IV ONE (12:01)
[2017-03-24] MEDS ORDERED: LACTATED RINGER'S 1000 ML INJ 1,000 ML IV ONE (12:01)
[2017-03-24 12:25] VITALS: O2SAT 95
[2017-03-24] MEDS: CALCIUM/VITAMIN D 250 MG/125 U TAB PO SCH ×2 (12:39→18:33)
--- NOTE | 2017-03-24 13:23 | RADRPT ---
EXAM DATE/TIME: 03/24/2017 09:33 [facility] COMPARISON: FEMUR LEFT (AP & LAT/2VWS), March 23, 2017, 17:19. INDICATIONS : Open reduction internal fixation left distal femur. MEDICAL HISTORY : None. SURGICAL HISTORY : None. ENCOUNTER: Initial ACUITY: 1 day PAIN SCORE: Non-responsive. LOCATION: Left femur. FINDINGS: Plate with screws is seen bridging the fracture of the distal femur. Alignment is anatomic. CONCLUSION: Anatomic alignment. Jimmie Fuller MD FACR on March 24, 2017 at 13:15 Board Certified Radiologist. This report was verified electronically.
--- NOTE | 2017-03-24 14:46 | HHI.PR ---
Subjective Remarks Patient seen postop today. No complaints. Pain control. Hemoglobin 10.6 this morning. Objective Vital Signs Date Time Temp Pulse Resp B/P Pulse Ox O2 Delivery O2 Flow Rate FiO2 03/24/17 11:37 96.3 61 14 118/56 100 Nasal Cannula 2 03/24/17 11:30 62 13 122/58 100 Nasal Cannula 2 03/24/17 11:15 62 13 132/62 100 Nasal Cannula 2 03/24/17 11:00 62 18 125/55 99 Nasal Cannula 2 03/24/17 10:45 71 12 133/63 100 Nasal Cannula 2 03/24/17 10:30 72 14 125/61 100 Nasal Cannula 2 03/24/17 10:15 80 13 125/59 100 Nasal Cannula 2 03/24/17 10:12 96.8 80 18 124/62 100 Nasal Cannula 2 03/24/17 04:45 96.5 73 16 116/63 97 03/24/17 00:40 96.0 66 16 120/65 97 03/23/17 23:51 18 03/23/17 20:56 96.7 80 17 147/74 99 03/23/17 18:01 71 20 148/68 98 Room Air 03/23/17 17:51 22 98 03/23/17 16:46 97 Room Air 03/23/17 16:36 97.7 52 18 164/67 98 I/O 03/23/17 03/23/17 03/23/17 03/24/17 03/24/17 03/24/17 06:59 14:59 22:59 06:59 14:59 22:59 Intake Total 240 ml 659 ml 1482 ml Output Total 200 ml 500 ml 350 ml Balance 40 ml 159 ml 1132 ml Intake Oral 240 ml 0 ml 0 ml IV Total 659 ml 182 ml Other 1300 ml Output Urine Total 200 ml 500 ml 300 ml Estimated Blood Loss 50 ml # Bowel Movements 0 0 Result Diagram: 03/24/17 0608 03/24/17 0608 Imaging Last Impressions Chest X-Ray 03/23/17 1637 Signed Impressions: Service Date/Time: Thursday, March 23, 2017 17:36 - CONCLUSION: No evidence of acute cardiopulmonary disease. Josiah Guzman MD Tibia/Fibula X-Ray 03/23/17 0000 Signed Impressions: Service Date/Time: Thursday, March 23, 2017 17:23 - CONCLUSION: No acute fracture or dislocation. Ronald Dominguez MD Knee X-Ray 03/23/17 0000 Signed Impressions: Service Date/Time: Thursday, March 23, 2017 17:23 - CONCLUSION: Acute comminuted displaced fracture involving the left distal femur proximal to the femoral prosthesis. Ronald Dominguez MD Femur X-Ray 03/23/17 0000 Signed Impressions: Service Date/Time: Thursday, March 23, 2017 17:19 - CONCLUSION: Acute comminuted displaced fracture involving the left distal femur proximal to the knee prosthesis. Ronald Dominguez MD Objective Remarks GENERAL: NAD, A&Ox3 HEAD: Normocephalic. NECK: Supple, trachea midline. No lymphadenopathy. EYES: No scleral icterus. No injection or drainage. CARDIOVASCULAR: Regular rate and rhythm without murmurs, gallops, or rubs. RESPIRATORY: Breath sounds equal bilaterally. No accessory muscle use. GASTROINTESTINAL: Abdomen soft, non-tender, nondistended. MUSCULOSKELETAL: No cyanosis, or edema. Left leg bandage SKIN: Warm and dry. NEURO: No focal neurological deficitis. Medications and IVs Administered Medications Medications (Trade) Dose Ordered Sig/Chilo Route PRN Reason Start Time Stop Time Status Last Admin Dose Admin Levothyroxine Sodium (Synthroid) 100 mcg DAILY@06 PO 03/24/17 06:00 03/24/17 06:12 Hydromorphone HCl (Dilaudid Pf Inj) 1 mg Q3H PRN IV BREAKTHROUGH PAIN 03/23/17 19:15 03/24/17 06:17 Senna/Docusate Sodium 1 tab 1 tab BID PO 03/23/17 21:00 03/23/17 23:19 Lactated Ringer's (Lr 1000 ml Inj) 1,000 ml @ 80 mls/hr [id number] IV 03/24/17 09:45 03/24/17 10:50 Calcium/Vitamin D (Oscal-D 250-125) 250 mg TID PO 03/24/17 13:00 03/24/17 12:39 Ergocalciferol (Drisdol) 50,000 units Q7D PO 03/24/17 11:00 03/24/17 14:40 A/P Problem List: (1) Osteoarthritis ICD Code: M19.90 (2) Fracture, femur, distal ICD Code: S72.409A Assessment and Plan Assessment and plan 81-year-old female admitted for distal left femur fracture secondary to fall. Status post left femur fracture repair Plan to start PT seen When necessary pain treatments alf facility may be needed at discharge Incentive spirometry Hypertension As needed Vasotec IV Follow blood pressures Bronchiectasis Oxygen as needed Incentive spirometry Code Status Full DVT prophylaxis Lovenox Problem Qualifiers (1) Fracture, femur, distal: Qualified Code: S72.492A - Other closed fracture of distal end of left femur, initial encounter Cody Camacho MD Mar 24, 2017 14:46
[2017-03-24 16:00] VITALS: BP 120/64; PULSE 60; RESP 18; TEMP 95.1; O2SAT 97
[2017-03-24] MEDS: ceFAZolin 2 GM PREMIX 50 ML IV SCH (16:03)
[2017-03-24] MEDS: ACETAMINOPHEN/HYDROcodone 325 MG/7.5 MG TAB PO PRN ×2 (16:04→21:22)
[2017-03-24 20:55] VITALS: BP 112/53; PULSE 67; RESP 17; TEMP 97; O2SAT 100
[2017-03-24] MEDS: SODIUM CHLORIDE 0.9% FLUSH 5 ML FLUSH IVF SCH (21:00)
[2017-03-24] MEDS: VANCOMYCIN INJ 1,000 MG in SODIUM CHLOR 0.9% 250 ML INJ 250 ML IV SCH (21:23)
[2017-03-25] VITALS (8 sets, daily range): BP systolic 95–143; BP diastolic 52–71; PULSE 71–97; RESP 16–17; TEMP 96.5–99.1; O2SAT 93–100
[2017-03-25] MEDS: ceFAZolin 2 GM PREMIX 50 ML IV SCH ×4 (00:07→23:28)
[2017-03-25] MEDS: ACETAMINOPHEN/HYDROcodone 325 MG/7.5 MG TAB PO PRN ×2 (06:29→12:17)
--- NOTE | 2017-03-25 06:45 | PD.ORT.PN ---
Subjective Subjective Remarks Resting comfortably no new complaints Objective Vitals Vital Signs Date Time Temp Pulse Resp B/P Pulse Ox O2 Delivery O2 Flow Rate FiO2 03/25/17 04:45 97.9 73 17 107/61 98 03/25/17 00:50 97.2 71 17 95/52 100 03/24/17 20:55 97.0 67 17 112/53 100 03/24/17 16:00 95.1 60 18 120/64 97 03/24/17 12:25 95 03/24/17 11:37 96.3 61 14 118/56 100 Nasal Cannula 2 03/24/17 11:30 62 13 122/58 100 Nasal Cannula 2 03/24/17 11:15 62 13 132/62 100 Nasal Cannula 2 03/24/17 11:00 62 18 125/55 99 Nasal Cannula 2 03/24/17 10:45 71 12 133/63 100 Nasal Cannula 2 03/24/17 10:30 72 14 125/61 100 Nasal Cannula 2 03/24/17 10:15 80 13 125/59 100 Nasal Cannula 2 03/24/17 10:12 96.8 80 18 124/62 100 Nasal Cannula 2 I/O 03/24/17 03/24/17 03/24/17 03/25/17 03/25/17 03/25/17 07:00 15:00 23:00 07:00 15:00 23:00 Intake Total 659 ml 1482 ml 480 ml 240 ml Output Total 500 ml 350 ml 1000 ml 900 ml Balance 159 ml 1132 ml -520 ml -660 ml Intake Oral 0 ml 0 ml 480 ml 240 ml IV Total 659 ml 182 ml Other 1300 ml Output Urine Total 500 ml 300 ml 1000 ml 900 ml Estimated Blood Loss 50 ml # Bowel Movements 0 0 0 Result Diagram: 03/24/17 0608 03/24/17 0608 Imaging Last 24 hours Impressions Chest X-Ray 03/23/17 1637 Signed Impressions: Service Date/Time: Thursday, March 23, 2017 17:36 - CONCLUSION: No evidence of acute cardiopulmonary disease. Josiah Guzman MD Objective Remarks Bilateral upper extremities: Full range of motion and neurovascularly intact right lower extremity: Full range of motion and neurovascularly intact. Osteoarthritis of knee Left lower extremity: Knee immobilizer in place. Clean dry dressings intact . Distally intact sensation good capillary refills. Strong dorsal flexion plantar flexion of foot Assessment & Plan Assessment and Plan Left periprosthetic distal femur fracture POD 1 ORIF Knee immobilizer Nonweightbearing left lower extremity PT for passive range of motion of knee, no active leglifts or quad sets Lovenox Case management for discharge to home versus rehabilitation Follow-up with Dr. Dunbar or PA in 2 weeks Mickey Castano Jr. Mar 25, 2017 06:44
[2017-03-25 08:05] LABS: HEMATOCRIT 28.2 % (35.0-46.0); MEAN CELL VOLUME 88.8 FL (80.0-100.0); MEAN CORPUSCULAR HEMOGLOBIN 29.4 PG (27.0-34.0); MEAN CORPUSCULAR HGB CONC 33.1 % (32.0-36.0); PLATELET COUNT 127 TH/MM3 (150-450); RED BLOOD COUNT 3.18 MIL/MM3 (4.00-5.30); RED CELL DISTRIBUTION WIDTH 13.6 % (11.6-17.2); REVIEW FLAG FINAL; WHITE BLOOD COUNT 5.5 TH/MM3 (4.0-11.0)
[2017-03-25] MEDS: LEVOTHYROXINE SODIUM 100 MCG TAB PO SCH (08:08)
[2017-03-25 08:21] LABS: BICARBONATE 27.8 MEQ/L (21.0-32.0); POTASSIUM 3.6 MEQ/L (3.5-5.1)
[2017-03-25] MEDS: DOCUSATE SODIUM 50 MG/SENNA 8.6 MG TAB PO SCH ×2 (09:02→19:49)
[2017-03-25] MEDS: CALCIUM/VITAMIN D 250 MG/125 U TAB PO SCH ×3 (09:02→17:12)
[2017-03-25] MEDS: VANCOMYCIN INJ 1,000 MG in SODIUM CHLOR 0.9% 250 ML INJ 250 ML IV SCH ×2 (09:02→19:48)
[2017-03-25] MEDS: CHOLECALCIFEROL (VIT D3) 1000 UNIT TAB PO SCH (09:02)
[2017-03-25] MEDS: SODIUM CHLORIDE 0.9% FLUSH 5 ML FLUSH IVF SCH ×2 (09:03→19:49)
[2017-03-25] MEDS: ENOXAPARIN SODIUM 30 MG/0.3 ML SYRINGE SQ SCH (09:05)
[2017-03-25] MEDS: HYDROmorphone HCL PF 1 MG/ML VIAL IV PRN (09:06)
--- NOTE | 2017-03-25 11:00 | HHI.PR ---
Subjective Subjective Remarks pain well controlled no cp no sob no fever no BM yet no acute changes overnight Review of Systems Constitutional Constitutional Remarks 12 point ROS completed, negative except as noted above Vitals/Results Intake & Output 03/24/17 03/24/17 03/25/17 15:00 23:00 07:00 Intake Total 1482 ml 480 ml 240 ml Output Total 350 ml 1000 ml 900 ml Balance 1132 ml -520 ml -660 ml Intake Oral 0 ml 480 ml 240 ml IV Total 182 ml Other 1300 ml Output Urine Total 300 ml 1000 ml 900 ml Estimated Blood Loss 50 ml # Bowel Movements 0 0 Vital Signs Vital Signs Date Time Temp Pulse Resp B/P Pulse Ox O2 Delivery O2 Flow Rate FiO2 03/25/17 08:00 99.1 82 16 123/58 96 03/25/17 04:45 97.9 73 17 107/61 98 03/25/17 00:50 97.2 71 17 95/52 100 03/24/17 20:55 97.0 67 17 112/53 100 03/24/17 16:00 95.1 60 18 120/64 97 03/24/17 12:25 95 03/24/17 11:37 96.3 61 14 118/56 100 Nasal Cannula 2 03/24/17 11:30 62 13 122/58 100 Nasal Cannula 2 03/24/17 11:15 62 13 132/62 100 Nasal Cannula 2 CBC/BMP: 03/25/17 0649 03/25/17 0649 Lab Results Laboratory Tests Test 03/25/17 06:49 White Blood Count 5.5 TH/MM3 Red Blood Count 3.18 MIL/MM3 Hemoglobin 9.3 GM/DL Hematocrit 28.2 % Mean Corpuscular Volume 88.8 FL Mean Corpuscular Hemoglobin 29.4 PG Mean Corpuscular Hemoglobin 33.1 % Concent Red Cell Distribution Width 13.6 % Platelet Count 127 TH/MM3 Mean Platelet Volume 8.2 FL Sodium Level 138 MEQ/L Potassium Level 3.6 MEQ/L Chloride Level 102 MEQ/L Carbon Dioxide Level 27.8 MEQ/L Anion Gap 8 MEQ/L Blood Urea Nitrogen 7 MG/DL Creatinine 0.45 MG/DL Estimat Glomerular Filtration 134 ML/MIN Rate Random Glucose 95 MG/DL Calcium Level 8.0 MG/DL Physical Exam General General Appearance: Well Developed, Well Nourished, No Acute Distress, Comfortable Eyes Eye Exam: Pupils Equal, Pupils Reactive Ears & Nose Ears & Nose Exam: Nasal Mucosa [place] Throat Throat Exam: Oral Mucosa [place] & Moist Neck Neck Exam: Neck Supple, Trachea Midline Pulmonary Resp Exam: No Distress, Decreased Bases Gastrointestinal/Abdomen GI Exam: Soft, Non-Tender, Bowel Sounds Present, Non-Distended Musculoskeletal MS Exam: Joints Intact MS Remarks left hip dressing D/I Integumentary Skin Exam: Warm, Dry Extremeties Extremities Exam: No Edema, Pedal Pulses Palpable Neurologic Neuro Exam: Alert, Awake, Oriented, Speech Clear, Debubblizer Equal Psychiatric Psych Exam: Appropriate Responses VTE Prophylaxis VTE Prophylaxis Device: SCDs, TEDs VTE Prophylaxis Meds: Lovenox Assessment/Plan Problem List: (1) Fracture, femur, distal (2) Bronchiectasis (3) Hypothyroid (4) Osteoarthritis Assessment/Plan Acute left distal femur fracture Following a mechanical fall. Noted on x ray. Orthopedic surgery was consulted and will see the patient in the morning. S/P Open reduction internal fixation left distal femur 03/24 - Pain control with IV Dilaudid and PO oxycodone, with a bowel regimen. - appreciate ortho input -continue post op ortho care - Incentive spirometry. - physical therapy. -Lovenox for DVT prophylaxis Hypertension, stable now - Pain controlled . - IV Vasotec as needed. Bronchiectasis Secondary to many years of smoking. She has quit smoking. Chest x-ray with no acute disease. - Oxygen and nebs as needed. - Incentive spirometry. HH stable CIR evaluating DC planning soon D/W RN D/W Dr. Shabazz D/W pt This patient was seen by myself and Dr. Shabazz, this note is written on his behalf Problem Qualifiers (1) Fracture, femur, distal: Qualified Code: S72.492A - Other closed fracture of distal end of left femur, initial encounter (2) Bronchiectasis: Qualified Code: J47.9 - Bronchiectasis without complication (3) Hypothyroid: Qualified Code: E03.9 - Hypothyroidism, unspecified type (4) Osteoarthritis: Qualified Code: M19.90 - Osteoarthritis, unspecified osteoarthritis type, unspecified site Sylvia Jung Mar 25, 2017 11:00
[2017-03-25] MEDS: LACTATED RINGER'S 1000 ML INJ 1,000 ML IV SCH ×2 (12:17→20:38)
[2017-03-26] MEDS: LEVOTHYROXINE SODIUM 100 MCG TAB PO SCH (05:53)
--- NOTE | 2017-03-26 06:42 | PD.ORT.PN ---
Subjective Subjective Remarks Resting comfortably no new complaints Objective Vitals Vital Signs Date Time Temp Pulse Resp B/P Pulse Ox O2 Delivery O2 Flow Rate FiO2 03/25/17 23:40 96.5 94 17 121/58 97 03/25/17 20:35 98.1 83 16 143/69 93 03/25/17 16:00 98.5 97 16 136/71 97 03/25/17 12:00 98.0 85 16 113/56 93 03/25/17 08:00 99.1 82 16 123/58 96 I/O 03/25/17 03/25/17 03/25/17 03/26/17 03/26/17 03/26/17 07:00 15:00 23:00 07:00 15:00 23:00 Intake Total 240 ml 600 ml 480 ml Output Total 900 ml 375 ml Balance -660 ml 225 ml 480 ml Intake Oral 240 ml 600 ml 480 ml Output Urine Total 900 ml 375 ml # Voids 4 # Bowel Movements 0 0 0 Result Diagram: 03/25/17 0649 03/25/17 0649 Imaging Last 24 hours Impressions Chest X-Ray 03/23/17 1637 Signed Impressions: Service Date/Time: Thursday, March 23, 2017 17:36 - CONCLUSION: No evidence of acute cardiopulmonary disease. Josiah Guzman MD Objective Remarks Bilateral upper extremities: Full range of motion and neurovascularly intact Right lower extremity: Full range of motion and neurovascularly intact. Osteoarthritis of knee Left lower extremity: Knee immobilizer in place. Clean dry dressings intact . Distally intact sensation good capillary refills. Strong dorsal flexion plantar flexion of foot Assessment & Plan Assessment and Plan Left periprosthetic distal femur fracture POD 2 ORIF Knee immobilizer Nonweightbearing left lower extremity PT for passive range of motion of knee, no active leglifts or quad sets Lovenox Case management for discharge rehabilitation Orthopedically cleared for discharge Follow-up with Dr. Dunbar or PA in 2 weeks Mickey Castano Jr. Mar 26, 2017 06:42
[2017-03-26 07:33] VITALS: O2SAT 95
[2017-03-26 08:00] VITALS: BP 126/70; PULSE 94; RESP 16; TEMP 98; O2SAT 96
[2017-03-26] MEDS: SODIUM CHLORIDE 0.9% FLUSH 5 ML FLUSH IVF SCH (08:19)
[2017-03-26] MEDS: DOCUSATE SODIUM 50 MG/SENNA 8.6 MG TAB PO SCH (08:19)
[2017-03-26] MEDS: ENOXAPARIN SODIUM 30 MG/0.3 ML SYRINGE SQ SCH (08:19)
[2017-03-26] MEDS: CALCIUM/VITAMIN D 250 MG/125 U TAB PO SCH ×3 (08:19→16:54)
[2017-03-26] MEDS: CHOLECALCIFEROL (VIT D3) 1000 UNIT TAB PO SCH (08:19)
[2017-03-26] MEDS: ceFAZolin 2 GM PREMIX 50 ML IV SCH (08:24)
[2017-03-26] MEDS ORDERED: MAGNESIUM HYDROXIDE SUSP 30 ML CUP PO PRN (09:00)
[2017-03-26] MEDS ORDERED: BACITRACIN TOP OINT 15 GM TUBE TOPICAL SCH (09:00)
--- NOTE | 2017-03-26 10:13 | HHI.DCPOC ---
Discharge Care Plan Diagnosis: (1) Fracture, femur, distal (2) Bronchiectasis (3) Hypothyroid Your Health Problems Are: Difficulty with ADL Leg Swelling Goals to Promote Your Health * To prevent worsening of your condition and complications * To maintain your health at the optimal level Directions to Meet Your Goals Take your medications as prescribed Follow your dietary instruction Follow activity as directed Keep your appointments as scheduled Take your immunizations and boosters as scheduled If your symptoms worsen call your PCP, if no PCP go to Urgent Care Center or Emergency Room Smoking is Dangerous to Your Health. Avoid second hand smoke Call the 24-hour hour crisis hotline for domestic abuse at Sylvia Jung Mar 26, 2017 10:13
--- NOTE | 2017-03-26 10:14 | HHI.PR ---
Subjective Subjective Remarks pain well controlled no cp no sob no fever no BM yet no acute changes overnight Review of Systems Constitutional Constitutional Remarks 12 point ROS completed, negative except as noted above Vitals/Results Intake & Output 03/25/17 03/25/17 03/26/17 15:00 23:00 07:00 Intake Total 600 ml 480 ml 480 ml Output Total 375 ml Balance 225 ml 480 ml 480 ml Intake Oral 600 ml 480 ml 480 ml Output Urine Total 375 ml # Voids 4 3 # Bowel Movements 0 0 0 Vital Signs Vital Signs Date Time Temp Pulse Resp B/P Pulse Ox O2 Delivery O2 Flow Rate FiO2 03/26/17 08:20 Room Air 03/26/17 07:33 95 21 03/25/17 23:40 96.5 94 17 121/58 97 03/25/17 22:28 94 Nasal Cannula 2.00 03/25/17 20:35 98.1 83 16 143/69 93 03/25/17 16:00 98.5 97 16 136/71 97 03/25/17 12:00 98.0 85 16 113/56 93 CBC/BMP: 03/25/17 0649 03/25/17 0649 Physical Exam General General Appearance: Well Developed, Well Nourished, No Acute Distress, Comfortable Eyes Eye Exam: Pupils Equal, Pupils Reactive Ears & Nose Ears & Nose Exam: Nasal Mucosa [place] Throat Throat Exam: Oral Mucosa [place] & Moist Neck Neck Exam: Neck Supple, Trachea Midline Pulmonary Resp Exam: No Distress, Decreased Bases Gastrointestinal/Abdomen GI Exam: Soft, Non-Tender, Bowel Sounds Present, Non-Distended Musculoskeletal MS Exam: Joints Intact MS Remarks left hip dressing D/I Integumentary Skin Exam: Warm, Dry Extremeties Extremities Exam: No Edema, Pedal Pulses Palpable Neurologic Neuro Exam: Alert, Awake, Oriented, Speech Clear, Day Care Director Equal Psychiatric Psych Exam: Appropriate Responses VTE Prophylaxis VTE Prophylaxis Device: SCDs, TEDs VTE Prophylaxis Meds: Lovenox Assessment/Plan Problem List: (1) Fracture, femur, distal (2) Bronchiectasis (3) Hypothyroid (4) Osteoarthritis Assessment/Plan Acute left distal femur fracture Following a mechanical fall. Noted on x ray. Orthopedic surgery was consulted and will see the patient in the morning. S/P Open reduction internal fixation left distal femur 03/24 - Pain control with IV Dilaudid and PO oxycodone, with a bowel regimen. - appreciate ortho input -continue post op ortho care - Incentive spirometry. - physical therapy. -Lovenox for DVT prophylaxis -clear for dc Hypertension, stable now - Pain controlled . - IV Vasotec as needed. Bronchiectasis Secondary to many years of smoking. She has quit smoking. Chest x-ray with no acute disease. - Oxygen and nebs as needed. - Incentive spirometry. -stable, no resp. distress HH stable Clear for dc stable, pain control Bowel regimen in progress, needs to have BM Ok for dc to SNF F/U ortho Activity -nwb per ortho Diet-heart healthy D/W RN D/W Dr. Shabazz D/W pt and partner D/W CM This patient was seen by myself and Dr. Shabazz, this note is written on his behalf Discharge Minutes: 45 Problem Qualifiers (1) Fracture, femur, distal: Qualified Code: S72.492A - Other closed fracture of distal end of left femur, initial encounter (2) Bronchiectasis: Qualified Code: J47.9 - Bronchiectasis without complication (3) Hypothyroid: Qualified Code: E03.9 - Hypothyroidism, unspecified type (4) Osteoarthritis: Qualified Code: M19.90 - Osteoarthritis, unspecified osteoarthritis type, unspecified site Sylvia Jung Mar 26, 2017 10:14
[2017-03-26] MEDS: LACTATED RINGER'S 1000 ML INJ 1,000 ML IV SCH (11:24)
[2017-03-26 16:00] VITALS: BP 116/59; PULSE 87; RESP 16; TEMP 97.6; O2SAT 95
[2017-03-26] MEDS ORDERED: BISACODYL 10 MG SUPP RECTAL PRN (16:45)
[2017-03-26] MEDS: ACETAMINOPHEN/HYDROcodone 325 MG/7.5 MG TAB PO PRN (18:29)
--- NOTE | 2017-03-27 18:46 | HHI.DS ---
Discharge Summary Admission Date Mar 23, 2017 at 18:26 Discharge Date: Mar 27, 2017 Admitting Diagnosis distal femur fracture (1) Fracture, femur, distal (2) Bronchiectasis (3) Hypothyroid (4) Osteoarthritis CBC/BMP: 03/25/17 0649 03/25/17 0649 Significant Findings Laboratory Tests Test 03/25/17 06:49 Red Blood Count 3.18 MIL/MM3 (4.00-5.30) Hemoglobin 9.3 GM/DL (11.6-15.3) Hematocrit 28.2 % (35.0-46.0) Platelet Count 127 TH/MM3 (150-450) Creatinine 0.45 MG/DL (0.50-1.00) Calcium Level 8.0 MG/DL (8.5-10.1) Imaging Last Impressions Femur X-Ray 03/24/17 0000 Signed Impressions: Service Date/Time: Friday, March 24, 2017 09:33 - CONCLUSION: Anatomic alignment. Jimmie Fuller MD FACR Chest X-Ray 03/23/17 1637 Signed Impressions: Service Date/Time: Thursday, March 23, 2017 17:36 - CONCLUSION: No evidence of acute cardiopulmonary disease. Josiah Guzman MD Tibia/Fibula X-Ray 03/23/17 0000 Signed Impressions: Service Date/Time: Thursday, March 23, 2017 17:23 - CONCLUSION: No acute fracture or dislocation. Ronald Dominguez MD Knee X-Ray 03/23/17 0000 Signed Impressions: Service Date/Time: Thursday, March 23, 2017 17:23 - CONCLUSION: Acute comminuted displaced fracture involving the left distal femur proximal to the femoral prosthesis. Ronald Dominguez MD Hospital Course The patient is a 81-year-old female with past medical history of osteoarthritis who presented to the hospital following a mechanical fall. She said she was doing laundry and slipped on wet tile and fell down on the left side of her body. She believes she hit the left lower buttocks area the hardest. She had extreme pain upon hitting the ground and was unable to stand up. Her partner found her and called the patient's orthopedic doctor's office who recommended they call for an ambulance. An ambulance soon arrived and transported the patient to the hospital. The patient says her pain did not much improve with the Dilaudid. As her pain as a 10 out of 10 with any movement. She says her pain is a 0 if she does not move at all. She says that she has also arthritis in her right knee and will eventually need surgery for that. She also complained of lower back pain with shooting pains on the right side. Pt. admitted for: (1) Fracture, femur, distal (2) Bronchiectasis (3) Hypothyroid (4) Osteoarthritis During the course of the hospitalization, the following took place: Was found with Acute left distal femur fracture Following a mechanical fall. Noted on x ray. Orthopedic surgery was consulted S/P Open reduction internal fixation left distal femur 03/24 - Pain control with IV Dilaudid and PO oxycodone, with a bowel regimen. - appreciated ortho input -continued post op ortho care - Incentive spirometry ordered - physical therapy. -Lovenox for DVT prophylaxis -cleared for dc , stable post op course Hypertension, stable now - Pain controlled . - IV Vasotec as needed. Bronchiectasis Secondary to many years of smoking. She has quit smoking. Chest x-ray with no acute disease. - Oxygen and nebs as needed. - Incentive spirometry. -stable, no resp. distress HH stable Cleared for dc stable, pain control Bowel regimen in progress Discharged to SNF F/U ortho Activity -nwb per ortho Diet-heart healthy Pt Condition on Discharge: Stable Discharge Disposition: Discharge to SNF Discharge Instructions DIET: Follow Instructions for: Heart Healthy Diet Activities you can perform: Non Weight Bearing Activities to Avoid: Shower Follow up Referrals: Orthopedics - 2 Weeks @ [facility] with Mychal Powers MD New Medications: Ergocalciferol (Ergocalciferol) 50,000 Unit Cap 11439 UNITS PO Q7D Nutritional Supplement #56 CAP Hydrocodone-Acetaminophen (Hydrocodone-Acetaminophen) 7.5-325 mg Tab 1 TAB PO Q4H PRN PAIN #60 Ref 0 TAB Rivaroxaban (Xarelto) 10 Mg Tab 10 MG PO DAILY Blood Clot Prevention #21 Ref 0 TAB Walker with Front Wheels (Walker with Front Wheels) 1 Mis Mis 1 EA .ROUTE DIRECTED #1 Ref 0 EA Continued Medications: Brinzolamide Opth Drops (Azopt Opth Drops) 1% Susp 1 DROP RIGHT EYE BID BOTTLE Levothyroxine (Levothyroxine) 100 Mcg Tab 100 MCG PO DAILY Thyroid #90 Ref 3 TAB Sylvia Jung [employer] Mar 27, 2017 18:46
== END 2017-03-26 21:19 | DRG 482 ==
LOC: NEPD 16:16 → NEDA 18:26 → N06A 21:01
PROVIDERS: ADMIT Specialist; ATTEND Specialist
PROC: 0QSC04Z Reposition Left Lower Femur with Internal Fixation Device, Open Approach (ICD-10-PCS; principal; 2017-03-24 08:07)
DX: M97.12XA Periprosthetic fracture around internal prosthetic left knee joint, initial encounter (principal); I10 Essential (primary) hypertension; E03.9 Hypothyroidism, unspecified; Y83.8 Other surgical procedures as the cause of abnormal reaction of the patient, or of later complication, without mention of misadventure at the time of the procedure; J47.9 Bronchiectasis, uncomplicated; Z87.891 Personal history of nicotine dependence; W01.0XXA Fall on same level from slipping, tripping and stumbling without subsequent striking against object, initial encounter; Y93.E2 Activity, laundry; Y92.009 Unspecified place in unspecified non-institutional (private) residence as the place of occurrence of the external cause; M17.11 Unilateral primary osteoarthritis, right knee
CPT/HCPCS: 71010; 73552; 73560; 73590; 76000; 80048; 80053; 82652; 82948; 85025; 85027; 85610; 93005; 94150; 96374; 96376; C1713; J0131; J0690; J1170; J1580; J1650; J2250; J2270; J2370; J2405; J2710; J3010; J3370; J7050; J7120; L1830